=== PATIENT | male | born 1955 | race Caucasian/White ===

== ENCOUNTER → 2017-01-23 17:25 | Outpatient (CLI) | payer BC ==
[2012-12-09 07:53] VITALS: BMI 46.0
[~2017-01-23 17:25] MED LIST: ASPIRIN 81 MG E81 MG PO; GLUCOPHAGE500 MG PO; MAXZIDE-25 MG T1 TAB PO; PRINIVIL20 MG PO
== END | disposition home or self-care (01) ==
LOC: D.LABREF 17:25
DX: M17.12 Unilateral primary osteoarthritis, left knee (principal); Z11.8 Encounter for screening for other infectious and parasitic diseases

== ENCOUNTER 2017-02-06 08:00 | Outpatient (CLI) | payer BC ==
[2012-12-09 07:53] VITALS: BMI 46.0
[~2017-02-06 08:00] MED LIST changes: +BYSTOLIC2.5 MG PO; +TRULICITY0.75 MG/0. SC
[2017-02-06 11:55] LABS: BASOPHILS 0.5 % (0-2); EOSINOPHILS 4.2 % (0-7); HEMATOCRIT 42.4 % (42.0-54.0); HEMOGLOBIN 14.3 g/dL (13.5-17.5); IMMATURE GRANULOCYTES 0.3 % (0-5); LYMPHOCYTES 26.1 % (15-50); MCH 29.3 pg (26.0-34.0); MCHC 33.7 g/dL (31.0-37.0); MCV 86.9 fL (80.0-100.0); MEAN PLATELET VOLUME 9.5 fL (7.4-10.4); MONOCYTES 9.6 % (2-11); NEUTROPHILS 59.3 % (40-80); RBC 4.88 10x6/uL (4.20-6.10); RDW 14.1 % (11.5-14.5); WBC 7.9 10x3/uL (4.8-10.8)
[2017-02-06 12:00] LABS: PLATELET COUNT 181 10x3/uL (130-400)
[2017-02-06 12:03] LABS: APPEARANCE CLEAR (CLEAR); BILIRUBIN NEGATIVE (NEGATIVE); COLOR YELLOW (YELLOW); GLUCOSE NEGATIVE (NEGATIVE); KETONE NEGATIVE (NEGATIVE); NITRITE NEGATIVE (NEGATIVE); PROTEIN NEGATIVE (NEGATIVE); UROBILINOGEN NORMAL (NORMAL)
[2017-02-06 12:11] LABS: CALC OSMOLALITY 284 mosm/kg (275-300); CALCIUM 8.6 mg/dL (8.5-10.1); CHLORIDE - SERUM 106 mmol/L (98-107); GLUCOSE 112 mg/dL (74-106); SODIUM 142 mmol/L (136-145); UREA NITROGEN 14 mg/dL (7-18); eGFR NON AFRICAN AMERICAN 80 mL/min (90-120)
[2017-02-06 12:18] LABS: APTT 27.5 SECONDS (22.8-39.4); INR 0.98 (0.85-1.17); PROTIME 12.8 SECONDS (11.6-15.0)
[2017-04-30] MEDS ORDERED: COZAAR100 MG PO (07:57)
== END 2017-02-06 23:59 | disposition home or self-care (01) ==
LOC: D.OPS 08:00 → D.M2 10:00 → D.OPS 11:30 → D.SDCHOLD 02-11 06:55 → D.M2 02-11 06:55 → EDSTATUS 02-11 10:00
PROVIDERS: Anesthesiology
DX: M81.0 Age-related osteoporosis without current pathological fracture (principal)

== ENCOUNTER 2017-05-01 10:00 | Inpatient (IN) | payer BC ==
[~2017-05-01] VITALS: Ht 175.3 cm; Wt 145.0 kg
--- NOTE | ~2017-05-01 | OP ---
PATIENT NAME: KATHE ALMAZAN MEDICAL RECORD: [id number] :51 LOCATION:[id number] ADMISSION DATE:05/06/17 SURGEON: STEFFEN FRANK MD DATE OF OPERATION: 05/06/2017 PREOPERATIVE DIAGNOSIS: Severe degenerative arthritis of the left knee. POSTOPERATIVE DIAGNOSIS: Severe degenerative arthritis of the left knee. PROCEDURE: Left total knee arthroplasty. SURGEON: Steffen Frank MD ANESTHESIA: General. INTRAOPERATIVE COMPLICATIONS: None. SUMMARY OF PATHOLOGIC FINDINGS: The patient had extreme osteoarthritis of the left knee with a severe varus deformity. IMPLANTS USED: Rodrigo triathlon tibial component, size 5; tibial bearing insert, size 16 CS; Triathlon cruciate retaining femoral component, size 6; all press fit. No patella was done as it was pristine. OPERATIVE SUMMARY IN DETAIL: After obtaining the appropriate preoperative orthopedic surgical consents as well as anesthetic consultation, evaluation and clearance, the patient was brought to the operating room and placed on the operating room table in supine position. After general laryngeal mask airway was administered, tourniquet was placed about the proximal aspect of the left lower extremity. Left lower extremity was then prepped and draped in routine sterile fashion. The leg was elevated and exsanguinated, tourniquet was inflated to 350 mmHg. Midline incision was taken down, paramedian arthrotomy was performed. Patella was everted and the distal femur was exposed. Soft tissue excision was done in the usual fashion. Intramedullary guide hole was created for intramedullary guided distal femoral cut followed by complete exposure of the proximal tibia. Intramedullary guided hole was created here as well using intramedullary guidance to cut the tibia as well. Appropriate measurements were taken. Distal chamfer cuts were made on the femur. Trials were put in corresponding to the above-mentioned trials, taken through range of motion and found to be stable in all planes. Wound was then copiously irrigated, bone ends were dried, press-fit components were securely put into place. The knee was taken through range of motion and found to be stable in all planes. After further irrigation, a Rodrigo Vitagel was utilized in the deep knee cavity. The paramedian arthrotomy was then closed followed by more Vitagel, followed by #1 Vicryl, 2-0 Vicryl, and skin simeon for final closure. Sterile dressings were applied. The patient was awakened and taken to recovery room in stable condition. All final needle and sponge counts were correct. 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
[~2017-05-01 10:00] MED LIST changes: +COZAAR100 MG PO
[2017-05-01 11:39] LABS: BASOPHILS 0.4 % (0-2); EOSINOPHILS 2.1 % (0-7); HEMATOCRIT 42.7 % (42.0-54.0); HEMOGLOBIN 14.4 g/dL (13.5-17.5); IMMATURE GRANULOCYTES 0.1 % (0-5); MCH 29.1 pg (26.0-34.0); MCHC 33.7 g/dL (31.0-37.0); MCV 86.4 fL (80.0-100.0); MEAN PLATELET VOLUME 9.3 fL (7.4-10.4); MONOCYTES 9.6 % (2-11); NEUTROPHILS 68.8 % (40-80); PLATELET COUNT 200 10x3/uL (130-400); RBC 4.94 10x6/uL (4.20-6.10); RDW 13.7 % (11.5-14.5); WBC 8.2 10x3/uL (4.8-10.8)
[2017-05-01 11:51] LABS: CALC OSMOLALITY 277 mosm/kg (275-300); CALCIUM 8.8 mg/dL (8.5-10.1); CHLORIDE - SERUM 102 mmol/L (98-107); GLUCOSE 156 mg/dL (74-106); SODIUM 138 mmol/L (136-145); UREA NITROGEN 9 mg/dL (7-18); eGFR NON AFRICAN AMERICAN 80 mL/min (90-120)
[2017-05-01 11:52] LABS: APPEARANCE CLEAR (CLEAR); BILIRUBIN NEGATIVE (NEGATIVE); COLOR YELLOW (YELLOW); GLUCOSE NEGATIVE (NEGATIVE); KETONE NEGATIVE (NEGATIVE); NITRITE NEGATIVE (NEGATIVE); PROTEIN NEGATIVE (NEGATIVE)
[2017-05-01 12:06] LABS: APTT 26.2 SECONDS (22.8-39.4); INR 1.04 (0.85-1.17); PROTIME 13.2 SECONDS (11.6-15.0)
[2017-05-06 05:45] VITALS: BP 187/98; BMI 47.3
[2017-05-06 10:10] VITALS: BP 144/73
[2017-05-06 17:27] VITALS: BP 149/64
[2017-05-06 20:00] VITALS: BP 143/74
[2017-05-07 05:05] LABS: MCH 28.6 pg (26.0-34.0); MCHC 32.4 g/dL (31.0-37.0); MCV 88.3 fL (80.0-100.0); MEAN PLATELET VOLUME 9.8 fL (7.4-10.4); RBC 4.19 10x6/uL (4.20-6.10); RDW 14.2 % (11.5-14.5); WBC 11.7 10x3/uL (4.8-10.8)
[2017-05-07 09:30] VITALS: BP 155/74
[2017-05-07 12:01] VITALS: BP 180/73
[2017-05-07 16:31] VITALS: BP 141/63
[2017-05-07 20:00] VITALS: BP 155/80
[2017-05-08 04:00] VITALS: BP 154/80
[2017-05-08 05:46] LABS: HEMATOCRIT 35.2 % (42.0-54.0); HEMOGLOBIN 11.4 g/dL (13.5-17.5); MCH 28.6 pg (26.0-34.0); MCHC 32.4 g/dL (31.0-37.0); MCV 88.2 fL (80.0-100.0); MEAN PLATELET VOLUME 9.9 fL (7.4-10.4); RBC 3.99 10x6/uL (4.20-6.10); RDW 14.4 % (11.5-14.5); WBC 10.8 10x3/uL (4.8-10.8)
[2017-05-08 08:16] VITALS: BP 152/77
[2017-05-08 12:25] VITALS: BP 160/77
[2017-05-08 16:21] VITALS: BP 175/81
[2017-05-08 20:00] VITALS: BP 144/60
[2017-05-09] VITALS (7 sets, daily range): BP systolic 135–183; BP diastolic 62–85
[2017-05-09 07:59] LABS: HEMATOCRIT 32.5 % (42.0-54.0); HEMOGLOBIN 10.9 g/dL (13.5-17.5); LYMPHOCYTES 10.7 % (15-50); MCH 28.5 pg (26.0-34.0); MCHC 33.5 g/dL (31.0-37.0); MEAN PLATELET VOLUME 9.2 fL (7.4-10.4); NEUTROPHILS 75.2 % (40-80); PLATELET COUNT 143 10x3/uL (130-400); RBC 3.82 10x6/uL (4.20-6.10); RDW 13.8 % (11.5-14.5); WBC 9.9 10x3/uL (4.8-10.8)
[2017-05-09 08:02] LABS: MCV 85.1 fL (80.0-100.0)
[2017-05-09 08:23] LABS: ALBUMIN 2.4 g/dL (3.4-5.0); ALKALINE PHOSPHATASE 59 U/L (46-116); ALT (SGPT) 16 U/L (10-68); CALC OSMOLALITY 284 mosm/kg (275-300); CALCIUM 8.2 mg/dL (8.5-10.1); CARBON DIOXIDE 27.9 mmol/L (21.0-32.0); CHLORIDE - SERUM 103 mmol/L (98-107); POTASSIUM - SERUM 4.3 mmol/L (3.5-5.1); PROTEIN - SERUM 6.3 g/dL (6.4-8.2); SODIUM 139 mmol/L (136-145); UREA NITROGEN 13 mg/dL (7-18); eGFR NON AFRICAN AMERICAN 80 mL/min (90-120)
[2017-05-09 08:27] LABS: GLUCOSE 219 mg/dL (74-106)
[2017-05-10] VITALS: BP 110/59; BP 151/77
[2017-05-10 04:00] VITALS: BP 146/74
[2017-05-10 04:09] VITALS: BP 183/75; Ht 175.3 cm; Wt 145.0 kg
[2017-05-10 07:55] VITALS: BP 137/86
[2017-05-10] MEDS ORDERED: PERCOCET 10/3251 TA1 PO (09:19)
[2017-05-10] MEDS ORDERED: ELIQUIS2.5 MG PO (09:19)
[2017-05-10] MEDS ORDERED: BACTRIM DS TABL1 TAB PO (09:20)
== END 2017-05-10 12:11 | disposition home or self-care (01) | DRG 470 ==
LOC: D.MS 10:00 → D.SDCHOLD 05-06 05:00 → D.MS 05-06 05:00
PROVIDERS: Orthopaedic Surgery
PROC: 0SRD0JA Replacement of Left Knee Joint with Synthetic Substitute, Uncemented, Open Approach (ICD-10-PCS; principal; 2017-05-06 07:30)
DX: M17.12 Unilateral primary osteoarthritis, left knee (principal); Z68.42 Body mass index [BMI] 45.0-49.9, adult; E11.9 Type 2 diabetes mellitus without complications; I10 Essential (primary) hypertension; G47.30 Sleep apnea, unspecified; E66.01 Morbid (severe) obesity due to excess calories

== ENCOUNTER → 2017-10-09 12:42 | Outpatient (CLI) | payer BC ==
[2017-05-10 04:09] VITALS: BMI 47.2
[~2017-10-09 12:42] MED LIST changes: +BACTRIM DS TABL1 TAB PO; +ELIQUIS2.5 MG PO; +HYDROCODONE-APA1 TAB PO; +PERCOCET 10/3251 TA1 PO; +TRULICITY1.5 MG/0.5 SC
== END | disposition home or self-care (01) ==
LOC: D.LABREF 12:42
DX: M17.11 Unilateral primary osteoarthritis, right knee (principal); Z11.8 Encounter for screening for other infectious and parasitic diseases

== ENCOUNTER 2017-11-06 10:00 | Inpatient (IN) | payer BC ==
[~2017-11-06] VITALS: Ht 175.3 cm; Wt 142.3 kg
--- NOTE | ~2017-11-06 | OP ---
PATIENT NAME: KATHE ALMAZAN MEDICAL RECORD: [id number] :51 LOCATION:[id number] ADMISSION DATE:11/11/17 SURGEON: STEFFEN FRANK MD DATE OF OPERATION: 11/11/2017 PREOPERATIVE DIAGNOSIS: Severe degenerative arthritis of the right knee. POSTOPERATIVE DIAGNOSIS: Severe degenerative arthritis of the right knee. PROCEDURE: Right total knee arthroplasty. SURGEON: Steffen Frank MD ANESTHESIA: General. INTRAOPERATIVE COMPLICATIONS: None. SUMMARY OF PATHOLOGIC FINDINGS: Severe degenerative arthritis, tricompartmental. IMPLANTS USED: [place] Triathlon total knee arthroplasty size 7 distal femur, size 9 polyethylene insert, size 7 tibial baseplate, size 36 patellar component cemented. OPERATIVE SUMMARY IN DETAIL: After obtaining the appropriate preoperative orthopedic surgery consent as well as anesthetic consultation, evaluation, and clearance, the patient was brought to the operating room and placed on the operating table in supine position. After general laryngeal mask administered, tourniquet was placed on the proximal aspect of the right lower extremity. Right lower extremity was then prepped and draped in routine sterile fashion. The leg was elevated and exsanguinated, tourniquet inflated to 350 mmHg. Routine midline incision was taken down for paramedian arthrotomy. The patella was everted. The distal femur was exposed. Soft tissue excision was done in the usual fashion. An intramedullary guide hole was created for intramedullary guided cuts. Distal femoral cut was created. This was followed by complete exposure of the proximal tibia. Intramedullary guide hole was created here and proximal tibial cut was made with the most minimal bone taken as possible. Measurements were taken. Distal femoral chamfer cuts were made. All residual osteophytes were removed. Trials were put into place corresponding to the above-mentioned final implants. These were taken through range of motion and found to be stable in all planes. Final femoral preparations and proximal tibial preparations were followed by resection of the articular surface of the patella that was arthritic. Final patellar preparations were made. The wound was then copiously irrigated with pulsatile lavage fashion. The bone ends were dried. Final components were cemented into place. All excess cement was removed before it was allowed to harden. After the cement was allowed to harden, the knee was taken through range of motion and again found to be stable in all planes with excellent patellar tracking. Paramedian arthrotomy was closed with #2 Ethibond. This was then followed by #1 Vicryl, 2-0 Vicryl, and skin simeon. A Prevena wound dressing was placed on this given the patient's overall girth. After completing this, sterile dressings were applied. Tourniquet was deflated. OPERATIVE REPORT [id number] KATHE ALMAZAN The patient was awakened, taken to the recovery in stable condition. All final needle and sponge counts were correct. TRANSINT:[id number] Voice Confirmation ID: [id number] DOCUMENT ID: [id number] ZAC PRASAD, STEFFEN MCCANN at 1549 CC: [id number] DICTATION DATE: 11/11/171924 SHED HAND: 11/11/172103 ADM IN [facility] [id number] [place] [id number]
[~2017-11-06 10:00] MED LIST changes: -HYDROCODONE-APA1 TAB PO
[2017-11-06 10:20] LABS: BASOPHILS 0.5 % (0-2); EOSINOPHILS 8.1 % (0-7); HEMATOCRIT 42.5 % (42.0-54.0); HEMOGLOBIN 14.3 g/dL (13.5-17.5); IMMATURE GRANULOCYTES 0.3 % (0-5); LYMPHOCYTES 22.2 % (15-50); MCH 28.5 pg (26.0-34.0); MCHC 33.6 g/dL (31.0-37.0); MCV 84.7 fL (80.0-100.0); MEAN PLATELET VOLUME 9.1 fL (7.4-10.4); MONOCYTES 9.1 % (2-11); NEUTROPHILS 59.8 % (40-80); RBC 5.02 10x6/uL (4.20-6.10); RDW 14.9 % (11.5-14.5); WBC 7.8 10x3/uL (4.8-10.8)
[2017-11-06 10:28] LABS: CALC OSMOLALITY 276 mosm/kg (275-300); CALCIUM 8.3 mg/dL (8.5-10.1); CARBON DIOXIDE 25.5 mmol/L (21.0-32.0); CHLORIDE - SERUM 104 mmol/L (98-107); CREATININE - SERUM 0.9 mg/dL (0.6-1.3); POTASSIUM - SERUM 4.2 mmol/L (3.5-5.1); SODIUM 138 mmol/L (136-145); UREA NITROGEN 13 mg/dL (7-18); eGFR NON AFRICAN AMERICAN 90 mL/min (90-120)
[2017-11-06 10:29] LABS: APTT 28.9 SECONDS (22.8-39.4); GLUCOSE 119 mg/dL (74-106); INR 0.99 (0.85-1.17); PLATELET COUNT 187 10x3/uL (130-400); PROTIME 12.7 SECONDS (11.6-15.0)
[2017-11-06 10:51] LABS: APPEARANCE CLEAR (CLEAR); BILIRUBIN NEGATIVE (NEGATIVE); COLOR YELLOW (YELLOW); GLUCOSE NEGATIVE (NEGATIVE); KETONE NEGATIVE (NEGATIVE); NITRITE NEGATIVE (NEGATIVE); PROTEIN NEGATIVE (NEGATIVE)
[2017-11-11 14:05] VITALS: BP 169/100; BMI 47.3
[2017-11-11 20:48] VITALS: BP 177/87
[2017-11-11 23:54] VITALS: BP 154/75
[2017-11-12 04:32] VITALS: BP 168/84
[2017-11-12 05:06] VITALS: BP 177/87; Ht 175.3 cm; Wt 142.3 kg
[2017-11-12 05:39] LABS: HEMOGLOBIN 12.4 g/dL (13.5-17.5); MCH 28.1 pg (26.0-34.0); MCHC 32.6 g/dL (31.0-37.0); MCV 86.2 fL (80.0-100.0); MEAN PLATELET VOLUME 9.3 fL (7.4-10.4); RBC 4.41 10x6/uL (4.20-6.10); RDW 14.5 % (11.5-14.5); WBC 9.7 10x3/uL (4.8-10.8)
[2017-11-12 08:25] VITALS: BP 167/75
[2017-11-12 11:57] VITALS: BP 175/83
[2017-11-12 16:27] VITALS: BP 174/79
[2017-11-12 22:40] VITALS: BP 153/68
[2017-11-13 01:14] VITALS: BP 164/68
[2017-11-13 04:42] VITALS: BP 149/68
[2017-11-13 05:43] LABS: HEMATOCRIT 35.4 % (42.0-54.0); HEMOGLOBIN 11.7 g/dL (13.5-17.5); MCH 28.4 pg (26.0-34.0); MCHC 33.1 g/dL (31.0-37.0); MCV 85.9 fL (80.0-100.0); MEAN PLATELET VOLUME 9.4 fL (7.4-10.4); RBC 4.12 10x6/uL (4.20-6.10); RDW 15.2 % (11.5-14.5)
[2017-11-13 08:00] VITALS: BP 162/92
[2017-11-13] MEDS ORDERED: HYDROCODONE-APA1 TAB PO (08:27)
[2017-11-13] MEDS ORDERED: ELIQUIS2.5 MG PO (08:27)
[2017-11-13 11:39] VITALS: BP 169/76
== END 2017-11-13 13:37 | disposition home or self-care (01) | DRG 470 ==
LOC: D.SDCHOLD 10:00 → D.MS 11-11 10:15 → D.SDCHOLD 11-11 10:15 → D.MS 11-11 20:42 → D.SDCHOLD 11-18 10:00
PROVIDERS: Orthopaedic Surgery
PROC: 0SRC0J9 Replacement of Right Knee Joint with Synthetic Substitute, Cemented, Open Approach (ICD-10-PCS; principal; 2017-11-11 12:30)
DX: M17.11 Unilateral primary osteoarthritis, right knee (principal); Z68.42 Body mass index [BMI] 45.0-49.9, adult; E11.9 Type 2 diabetes mellitus without complications; I10 Essential (primary) hypertension; E66.01 Morbid (severe) obesity due to excess calories; G47.30 Sleep apnea, unspecified; M25.761 Osteophyte, right knee